=== PATIENT | female | born 1950 | race Two or more races ===

== ENCOUNTER 2017-09-15 10:50 | Inpatient (IN) | payer OTHER ==
[~2017-09-15] VITALS: Ht 152.4 cm; Wt 81.6 kg
[2017-09-15] MEDS ORDERED: HYZAAR 100-12.1 EACH PO (22:09)
[2017-09-15] MEDS ORDERED: IRON325 MG PO (22:11)
[2017-09-15] MEDS ORDERED: SINGULAIR10 MG PO (22:12)
[2017-09-29] MEDS ORDERED: MONTELUKAST SOD10 MG PO (20:07)
[2017-09-29] MEDS ORDERED: PROAIR HFA8.5 GM IH (20:07)
[2017-09-29] MEDS ORDERED: MEDROLPACK PO (20:07)
[2017-09-29] MEDS ORDERED: ZITHROMAX500 MG PO (20:07)
[2017-09-29] MEDS ORDERED: FLUCONAZOLE100 MG PO (20:07)
[2017-09-29] MEDS ORDERED: Neurin-Sl Tablet Sl SL (20:07)
[2017-09-29] MEDS ORDERED: CARdura 4MG TABLET PO (20:07)
[2017-09-29] MEDS ORDERED: AVAPRO150 MG PO (20:07)
[2017-09-29] MEDS ORDERED: FOLIC ACID1 MG PO (20:07)
== END 2017-09-29 21:22 | disposition home or self-care (01) | DRG 178 ==
LOC: ER 10:50 → SEC-K 22:31 → MEDI 22:31
PROC: 3E0F7GC Introduction of Other Therapeutic Substance into Respiratory Tract, Via Natural or Artificial Opening (ICD-10-PCS; principal; 2017-09-15)
PROC: 4A033R1 Measurement of Arterial Saturation, Peripheral, Percutaneous Approach (ICD-10-PCS; 2017-09-15)
PROC: 30233N1 Transfusion of Nonautologous Red Blood Cells into Peripheral Vein, Percutaneous Approach (ICD-10-PCS; 2017-09-15)
PROC: B246ZZZ Ultrasonography of Right and Left Heart (ICD-10-PCS; 2017-09-19)
PROC: BW24ZZZ Computerized Tomography (CT Scan) of Chest and Abdomen (ICD-10-PCS; 2017-09-20)
PROC: BW21Y0Z Computerized Tomography (CT Scan) of Abdomen and Pelvis using Other Contrast, Unenhanced and Enhanced (ICD-10-PCS; 2017-09-22)
DX: J15.212 Pneumonia due to Methicillin resistant Staphylococcus aureus (principal); J45.31 Mild persistent asthma with (acute) exacerbation; J90 Pleural effusion, not elsewhere classified; R18.8 Other ascites; B37.49 Other urogenital candidiasis; D50.8 Other iron deficiency anemias; J15.7 Pneumonia due to Mycoplasma pneumoniae; R09.02 Hypoxemia; I10 Essential (primary) hypertension; D69.59 Other secondary thrombocytopenia; K74.69 Other cirrhosis of liver; R16.1 Splenomegaly, not elsewhere classified

== ENCOUNTER 2022-07-21 12:19 | Outpatient (CLI) | payer OTHER ==
[~2022-07-21 12:19] MED LIST: AVAPRO150 MG PO; CARdura 4MG TABLET PO; FLUCONAZOLE100 MG PO; FOLIC ACID1 MG PO; HYZAAR 100-12.1 EACH PO; IRON325 MG PO; MEDROLPACK PO; MONTELUKAST SOD10 MG PO; Neurin-Sl Tablet Sl SL; PROAIR HFA8.5 GM IH; SINGULAIR10 MG PO; ZITHROMAX500 MG PO
== END 2022-07-21 12:29 | disposition home or self-care (01) ==
LOC: PPH VACUNA 12:19
PROVIDERS: ATTEND Emergency Medicine Pediatric Emergency Medicine
DX: Z23 Encounter for immunization (principal)

== ENCOUNTER 2022-10-07 13:48 | Inpatient (IN) | payer OTHER ==
[~2022-10-07] VITALS: Ht 160 cm; Wt 68.5 kg
--- NOTE | 2022-10-07 14:32 | NUR ---
SE RECIBE PTE ALERTA Y ORIENTADA X3 PTE REFIERE QUE FUE EN LA MANANA A LAB EN PLAZA ESCORIAL Y LE REFIRIERON QUE TENIA LA (HEMOGLOBINA 6.00) SE [place] VITALES Y SE JOBY EN IBRAHIMA DE ESPERA.
== END 2022-10-11 20:22 | disposition home or self-care (01) | DRG 812 ==
LOC: ER 13:48 → MEDI 18:30
PROVIDERS: ADMIT Internal Medicine; ATTEND Internal Medicine
PROC: 30233N1 Transfusion of Nonautologous Red Blood Cells into Peripheral Vein, Percutaneous Approach (ICD-10-PCS; 2022-10-08)
PROC: 0W9G3ZX Drainage of Peritoneal Cavity, Percutaneous Approach, Diagnostic (ICD-10-PCS; principal; 2022-10-10)
DX: D64.9 Anemia, unspecified (principal); R18.8 Other ascites; D63.1 Anemia in chronic kidney disease; I12.9 Hypertensive chronic kidney disease with stage 1 through stage 4 chronic kidney disease, or unspecified chronic kidney disease; N18.30 Chronic kidney disease, stage 3 unspecified; K74.69 Other cirrhosis of liver; Z20.822 Contact with and (suspected) exposure to COVID-19

== ENCOUNTER 2023-01-11 12:06 | Inpatient (IN) | payer OTHER ==
[~2023-01-11] VITALS: Ht 152.4 cm; Wt 55.3 kg
[2023-01-11] MEDS ORDERED: FOLIC ACID0.8 M1 (12:33)
[2023-01-11] MEDS ORDERED: PRE PROTEIN1 EACH PO (12:33)
[2023-01-12] MEDS ORDERED: INTEGRA F CAPS1 EACH (11:43)
[2023-01-12] MEDS ORDERED: VITAMIN D350 MCG (11:43)
[2023-01-12] MEDS ORDERED: ABANEU-SL TABL1 EACH (11:46)
== END 2023-01-14 13:21 | disposition home or self-care (01) | DRG 812 ==
LOC: ER 12:06 → MEDI 16:34
PROVIDERS: ADMIT Internal Medicine; ATTEND Internal Medicine
PROC: 30233N1 Transfusion of Nonautologous Red Blood Cells into Peripheral Vein, Percutaneous Approach (ICD-10-PCS; principal; 2023-01-11)
DX: D64.9 Anemia, unspecified (principal); K74.69 Other cirrhosis of liver; I12.9 Hypertensive chronic kidney disease with stage 1 through stage 4 chronic kidney disease, or unspecified chronic kidney disease; N18.30 Chronic kidney disease, stage 3 unspecified; D63.1 Anemia in chronic kidney disease

== ENCOUNTER 2023-04-13 09:38 | Inpatient (IN) | payer OTHER ==
[~2023-04-13] VITALS: Ht 152.4 cm; Wt 55.8 kg
[~2023-04-13 09:38] MED LIST changes: +ABANEU-SL TABL1 EACH; +FOLIC ACID0.8 M1; +INTEGRA F CAPS1 EACH; +PRE PROTEIN1 EACH PO; +VITAMIN D350 MCG
== END 2023-04-16 17:22 | disposition home or self-care (01) | DRG 812 ==
LOC: SEC-K 09:38 → MEDJ 09:38
PROVIDERS: ADMIT Internal Medicine; ATTEND Internal Medicine
PROC: 30233N1 Transfusion of Nonautologous Red Blood Cells into Peripheral Vein, Percutaneous Approach (ICD-10-PCS; principal; 2023-04-13)
PROC: 8E0ZXY6 Isolation (ICD-10-PCS; 2023-04-13)
DX: D64.9 Anemia, unspecified (principal); D69.6 Thrombocytopenia, unspecified; K74.60 Unspecified cirrhosis of liver; K76.9 Liver disease, unspecified

== ENCOUNTER 2023-08-23 10:15 | Inpatient (IN) | payer OTHER ==
[~2023-08-23] VITALS: Ht 152.4 cm; Wt 55.3 kg
[2023-08-23 12:57] LABS: MEAN CELL VOLUME 104.5 fL (80.00-100.00); MEAN CORPUSCULAR HGB CONC 32.4 g/dl (32.0-36.0); RED BLOOD COUNT 1.53 M/uL (4.00-6.00)
[2023-08-23 13:07] LABS: ALBUMIN 3.1 gm/dL (3.4-5.0); BILIRUBIN TOTAL 0.93 mg/dL (0.3-1.2); CALCIUM 8.1 mg/dL (8.5-10.1); CREATININE SERUM 1.75 mg/dL (0.55-1.02); GFR 28.34; GLOBULINA 3.4 G/DL (2.4-3.5); INR 1.18; MEAN CORPUSCULAR HEMOGLOBIN 33.9 pg (27.00-32.0); PARTIAL THROMBOPLASTIN TIME 25.8 SECONDS (22.0-34.0); PROTHROMBIN TIME 12.2 SECONDS (9.0-11.5); TOTAL PROTEIN 6.5 gm/dL (6.4-8.2)
[2023-08-23 13:09] LABS: HEMOGLOBIN 5.2 g/dL (12.0-15.00); PLATELET COUNT 91 K/uL (150-450)
[2023-08-23 13:41] LABS: POTASSIUM 5.93 mEq/L (3.5-5.1)
[2023-08-23 22:04] LABS: PH,URINE 5.5 (5.0-8.0); URINE APPEARANCE Clear; URINE BILIRRUBIN Negative (NEGATIVE); URINE BLOOD Negative; URINE COLOR Yellow; URINE GLUCOSE Negative (NEGATIVE); URINE LEUKOCYTE Negative; URINE NITRATE Negative; URINE PROTEIN Negative (NEGATIVE); URINE UROBILINOGEN 0.2 E.U./dl
[2023-08-23 22:08] LABS: URINE BACTERIA 129.7 uL (0.0-1933); URINE RBC 2.7 uL (0.0-20.8); URINE WBC 4.1 uL (0.0-23.2)
[2023-08-24 02:20] LABS: ABG PH 7.423 (7.35-7.45); ABG PO2 160.7 mmHg (80-100); BICARBONATE 14.1 mmol/l (23-25); SaO2 99.4 %; Tco2 14.7 mmol/l; allen test SATISFACTORY; o2 21 %; puncture site RADIAL LEFT
[2023-08-25 06:26] LABS: MEAN CELL VOLUME 92.9 fL (80.00-100.00); MEAN CORPUSCULAR HGB CONC 34.1 g/dl (32.0-36.0); RED BLOOD COUNT 2.53 M/uL (4.00-6.00); RED CELL DISTRIBUTION WIDTH 18.7 % (11.5-14.5)
[2023-08-25 06:33] LABS: HEMATOCRIT 23.5 % (36.0-45.00); MEAN CORPUSCULAR HEMOGLOBIN 31.6 pg (27.00-32.0)
[2023-08-25 06:35] LABS: PLATELET COUNT 78 K/uL (150-450)
[2023-08-25 06:52] LABS: MAGNESIUM 2.1 mg/dL (1.8-2.4); PHOSPHOROUS 4.6 mg/dL (2.5-4.9)
[2023-08-25 06:54] LABS: ALBUMIN 2.8 gm/dL (3.4-5.0); BILIRUBIN TOTAL 1.87 mg/dL (0.3-1.2); CALCIUM 7.8 mg/dL (8.5-10.1); CREATININE SERUM 1.64 mg/dL (0.55-1.02); GFR 30.54; POTASSIUM 3.14 mEq/L (3.5-5.1); TOTAL PROTEIN 5.8 gm/dL (6.4-8.2)
[2023-08-27 02:57] LABS: HEMATOCRIT 32.8 % (36.0-45.00); HEMOGLOBIN 11.1 g/dL (12.0-15.00); MEAN CORPUSCULAR HEMOGLOBIN 30.9 pg (27.00-32.0); RED CELL DISTRIBUTION WIDTH 16.9 % (11.5-14.5)
[2023-08-27 03:01] LABS: PLATELET COUNT 74 K/uL (150-450)
[2023-08-27 10:06] LABS: HEMATOCRIT 30.3 % (36.0-45.00); HEMOGLOBIN 10.4 g/dL (12.0-15.00); MEAN CORPUSCULAR HEMOGLOBIN 31.8 pg (27.00-32.0); MEAN CORPUSCULAR HGB CONC 34.2 g/dl (32.0-36.0); RED BLOOD COUNT 3.26 M/uL (4.00-6.00); RED CELL DISTRIBUTION WIDTH 16.6 % (11.5-14.5)
[2023-08-27 10:07] LABS: PLATELET COUNT 74 K/uL (150-450)
[2023-08-27 10:25] LABS: CALCIUM 7.7 mg/dL (8.5-10.1); CREATININE SERUM 1.77 mg/dL (0.55-1.02); GFR 27.97; PHOSPHOROUS 3.6 mg/dL (2.5-4.9); POTASSIUM 3.05 mEq/L (3.5-5.1)
[2023-08-27] MEDS ORDERED: SINGULAIR10 MG PO (13:08)
[2023-08-27] MEDS ORDERED: INTEGRA F CAPS1 EACH PO (13:08)
[2023-08-27] MEDS ORDERED: PRE PROTEIN1 EACH PO (13:08)
[2023-08-27] MEDS ORDERED: PANTOPRAZOLE SO40 MG PO (13:08)
== END 2023-08-27 20:00 | disposition home or self-care (01) | DRG 812 ==
LOC: ER → MEDJ 19:47
PROVIDERS: Emergency Medicine; General Practice; Internal Medicine Geriatric Medicine; Internal Medicine Nephrology; ADMIT Internal Medicine; ATTEND Internal Medicine
PROC: 30233N1 Transfusion of Nonautologous Red Blood Cells into Peripheral Vein, Percutaneous Approach (ICD-10-PCS; principal; 2023-08-24)
DX: D64.9 Anemia, unspecified (principal); N18.30 Chronic kidney disease, stage 3 unspecified; K74.60 Unspecified cirrhosis of liver; I12.9 Hypertensive chronic kidney disease with stage 1 through stage 4 chronic kidney disease, or unspecified chronic kidney disease; D63.1 Anemia in chronic kidney disease; Z20.822 Contact with and (suspected) exposure to COVID-19; D69.6 Thrombocytopenia, unspecified

== ENCOUNTER 2023-10-12 11:22 | Inpatient (IN) | payer OTHER ==
[~2023-10-12] VITALS: Ht 152.4 cm; Wt 63.5 kg
[~2023-10-12 11:22] MED LIST changes: +INTEGRA F CAPS1 EACH PO; +PANTOPRAZOLE SO40 MG PO
[2023-10-12] MEDS ORDERED: ACETAMINOPHEN 500 MG GEL..CAP PO PRN (12:45)
[2023-10-12 14:56] LABS: MEAN CELL VOLUME 99.3 fL (80.00-100.00); MEAN CORPUSCULAR HGB CONC 33.3 g/dl (32.0-36.0); RED BLOOD COUNT 1.36 M/uL (4.00-6.00)
[2023-10-12 14:58] LABS: RED CELL DISTRIBUTION WIDTH 23.5 % (11.5-14.5)
[2023-10-12 15:03] LABS: HEMATOCRIT 13.5 % (36.0-45.00); PLATELET COUNT 143 K/uL (150-450)
[2023-10-12 15:05] LABS: HEMOGLOBIN 4.5 g/dL (12.0-15.00)
[2023-10-12] MEDS ORDERED: Cyanocobalamin/Mecobalamin 1 TAB.SL SL SCH (18:20)
[2023-10-12] MEDS ORDERED: PYRIDOXINE HCL 100 MG TABLET PO SCH (18:20)
[2023-10-12] MEDS ORDERED: FOLIC ACID 1 MG TABLET PO SCH (18:20)
[2023-10-12] MEDS ORDERED: PANTOPRAZOLE SODIUM 40 MG/VIAL VIAL IV SCH (18:22)
[2023-10-12] MEDS ORDERED: CLONAZEPAM 0.5 MG TABLET PO SCH (21:00)
[2023-10-13] MEDS ORDERED: SOD FERRIC GLUC COMPLX/SUCROSE 62.5 MG/5 ML AMPUL IV SCH (09:00)
[2023-10-13] MEDS ORDERED: AMINO ACIDS 1 EACH TABLET PO SCH (09:00)
[2023-10-13] MEDS ORDERED: IPRATROPIUM BROMIDE 0.5 MG/2.5 ML AMPUL.NEB IH SCH (17:00)
[2023-10-13] MEDS ORDERED: BENZONATATE 200 MG CAPSULE PO SCH (17:00)
[2023-10-13] MEDS ORDERED: FUROsemide 20 MG/2 ML VIAL IV SCH (18:00)
[2023-10-14 08:32] LABS: ALBUMIN 2.7 gm/dL (3.4-5.0); BILIRUBIN TOTAL 4.45 mg/dL (0.3-1.2); CALCIUM 7.8 mg/dL (8.5-10.1); CREATININE SERUM 2.2 mg/dL (0.55-1.02); FERRITIN 77.5 NG/ML (8-252); GFR 21.76; GLOBULINA 2.9 G/DL (2.4-3.5); POTASSIUM 4.4 mEq/L (3.5-5.1); TOTAL PROTEIN 5.6 gm/dL (6.4-8.2)
[2023-10-14] MEDS ORDERED: AMINO ACIDS 1 EACH TABLET PO SCH (09:00)
[2023-10-14 09:28] LABS: INR 1.17; PARTIAL THROMBOPLASTIN TIME 27.5 SECONDS (22.0-34.0); PROTHROMBIN TIME 12.1 SECONDS (9.0-11.5)
[2023-10-14] MEDS ORDERED: FLUMAZENIL 0.5 MG/5ML ML IV ONE ×2 (14:33→14:45)
[2023-10-15 01:53] LABS: HEMATOCRIT 25.4 % (36.0-45.00); HEMOGLOBIN 8.6 g/dL (12.0-15.00); MEAN CELL VOLUME 92.1 fL (80.00-100.00); MEAN CORPUSCULAR HEMOGLOBIN 31.2 pg (27.00-32.0); PLATELET COUNT 89 K/uL (150-450); RED BLOOD COUNT 2.75 M/uL (4.00-6.00); RED CELL DISTRIBUTION WIDTH 18.4 % (11.5-14.5)
[2023-10-15] MEDS ORDERED: LACTULOSE 20 G/30 ML BLIST.PACK PO SCH (21:21)
[2023-10-16 07:11] LABS: ALBUMIN 2.4 gm/dL (3.4-5.0); BILIRUBIN TOTAL 4.02 mg/dL (0.3-1.2); CALCIUM 7.9 mg/dL (8.5-10.1); CREATININE SERUM 1.94 mg/dL (0.55-1.02); GFR 25.16; GLOBULINA 2.8 G/DL (2.4-3.5); POTASSIUM 4.07 mEq/L (3.5-5.1); TOTAL PROTEIN 5.2 gm/dL (6.4-8.2)
[2023-10-17] MEDS ORDERED: PANTOPRAZOLE SODIUM 40 MG TABLET.DR PO SCH (09:00)
[2023-10-17 22:13] LABS: HEMOGLOBIN 10.1 g/dL (12.0-15.00); MEAN CELL VOLUME 91.1 fL (80.00-100.00); MEAN CORPUSCULAR HEMOGLOBIN 31.8 pg (27.00-32.0); MEAN CORPUSCULAR HGB CONC 34.9 g/dl (32.0-36.0); RED BLOOD COUNT 3.19 M/uL (4.00-6.00); RED CELL DISTRIBUTION WIDTH 19.5 % (11.5-14.5)
[2023-10-17 22:21] LABS: PLATELET COUNT 73 K/uL (150-450)
[2023-10-18] MEDS ORDERED: LACTULOSE 20 G/30 ML BLIST.PACK PO SCH (09:00)
[2023-10-19 05:36] LABS: HEMATOCRIT 26.3 % (36.0-45.00); MEAN CELL VOLUME 90.6 fL (80.00-100.00); MEAN CORPUSCULAR HGB CONC 35.6 g/dl (32.0-36.0); RED CELL DISTRIBUTION WIDTH 20.3 % (11.5-14.5)
[2023-10-19 05:38] LABS: PLATELET COUNT 62 K/uL (150-450)
[2023-10-19 05:39] LABS: HEMOGLOBIN 9.4 g/dL (12.0-15.00); MEAN CORPUSCULAR HEMOGLOBIN 32.4 pg (27.00-32.0)
[2023-10-19 06:00] LABS: CALCIUM 7.6 mg/dL (8.5-10.1); CREATININE SERUM 1.52 mg/dL (0.55-1.02); GFR 33.34; POTASSIUM 4.51 mEq/L (3.5-5.1)
[2023-10-19] MEDS ORDERED: SOD FERRIC GLUC COMPLX/SUCROSE 62.5 MG/5 ML AMPUL IV SCH (09:57)
[2023-10-19] MEDS ORDERED: ONDANSETRON HCL 2 MG/ML VIAL IV SCH (19:30)
[2023-10-20] MEDS ORDERED: ALBUMIN HUMAN-25 0.25GM/ML (50ML) VIAL IV SCH ×2 (12:59→17:00)
[2023-10-20 14:29] LABS: ALB PERITONEAL FLUID 0.3 g/dl; TP PERITONEAL FLUID 0.8 g/dl
== END 2023-10-21 19:00 | disposition home or self-care (01) | DRG 812 ==
LOC: MEDJ 11:22
PROVIDERS: Internal Medicine; Internal Medicine Hematology & Oncology; Internal Medicine Nephrology; ADMIT Internal Medicine; ATTEND Internal Medicine
PROC: 30233N1 Transfusion of Nonautologous Red Blood Cells into Peripheral Vein, Percutaneous Approach (ICD-10-PCS; principal; 2023-10-12)
PROC: 3E0F7GC Introduction of Other Therapeutic Substance into Respiratory Tract, Via Natural or Artificial Opening (ICD-10-PCS; 2023-10-16)
DX: D64.89 Other specified anemias (principal); R18.8 Other ascites; B15.9 Hepatitis A without hepatic coma; N17.9 Acute kidney failure, unspecified; D50.0 Iron deficiency anemia secondary to blood loss (chronic); K76.82 Hepatic encephalopathy; K74.69 Other cirrhosis of liver; D63.8 Anemia in other chronic diseases classified elsewhere; K75.4 Autoimmune hepatitis; E88.09 Other disorders of plasma-protein metabolism, not elsewhere classified; I12.9 Hypertensive chronic kidney disease with stage 1 through stage 4 chronic kidney disease, or unspecified chronic kidney disease; N18.30 Chronic kidney disease, stage 3 unspecified; R06.02 Shortness of breath